=== PATIENT | female | born 1990 | race Caucasian/White ===

== ENCOUNTER → 2018-01-03 09:21 | Outpatient (CLI) | payer OTHER ==
[~2018-01-03 09:21] MED LIST: MOTRIN600 MG PO; PRENATAL COMPLE1 TAB PO; TUMS500 MG PO; TYLENOL PM1 TAB PO; TYLENOL W/CODEI1 TAB PO
[2018-01-07 08:38] VITALS: BMI 46.8
== END | disposition home or self-care (01) ==
LOC: D.LDO 09:21
DX: O48.0 Post-term pregnancy (principal); Z3A.40 40 weeks gestation of pregnancy; O36.8130 Decreased fetal movements, third trimester, not applicable or unspecified

== ENCOUNTER → 2018-01-04 15:49 | Outpatient (CLI) | payer OTHER ==
[2018-01-07 08:38] VITALS: BMI 46.8
== END | disposition home or self-care (01) ==
LOC: D.LDO 15:49
DX: O48.0 Post-term pregnancy (principal); Z3A.40 40 weeks gestation of pregnancy

== ENCOUNTER 2018-01-06 19:49 | Inpatient (IN) | payer OTHER ==
[~2018-01-06] VITALS: Ht 152.4 cm; Wt 108.9 kg
--- NOTE | ~2018-01-06 | DS ---
PATIENT:ANDRA RUSSELL :88 MEDICAL RECORD: [id number] DISCHARGE SUMMARY ADMISSION DATE: 01/06/18 DISCHARGE DATE: 01/09/18 DATE OF ADMISSION: 01/06/2018 DATE OF DISCHARGE: 01/09/2018 ADMISSION DIAGNOSIS: at term. DISCHARGE DIAGNOSIS: Mother delivered at term. PROCEDURE: Induction of labor with vaginal delivery. ATTENDING: Sachin Rubin MD HISTORY OF PRESENT ILLNESS AND INDICATION FOR HOSPITALIZATION: See the H&P in the chart. SUMMARY OF HOSPITALIZATION: The patient was admitted and underwent induction of labor without incident. The patient went on to deliver vaginally with perineal laceration, which was repaired. At the time of discharge, she is reporting adequate pain control with Motrin and Tylenol. The patient has been given standard precautions. She is afebrile and the uterus is below the level of the umbilicus and firm. She describes her lochia is moderate. The patient will be followed up in 6 weeks. TRANSINT:[id number] Voice Confirmation ID: [id number] DOCUMENT ID: [id number] SACHIN RUBIN MD at 0942 CC: [id number] DICTATION DATE: 02/15/18817 ACCOUNTS OFFICER: 02/15/18 0842 DIS IN 01/09/18 [id number] [place] [address]
--- NOTE | ~2018-01-06 | OP ---
PATIENT NAME: ANDRA RUSSELL MEDICAL RECORD: [id number] :89 LOCATION:[id number] ADMISSION DATE:01/06/18 SURGEON: OH RUBIN MD DATE OF OPERATION: 01/08/2018 DELIVERY NOTE PREDELIVERY DIAGNOSIS: at 40+ weeks' gestation. POSTDELIVERY DIAGNOSIS. Mother delivered at term. PROCEDURE: Induction of labor with vaginal delivery. ATTENDING: Oh Rubin MD ANESTHETIC: Continuous lumbar epidural. FINDINGS: Viable female in K[place] presentation. Apgars were 9 and 9. The weight is 9 pounds 2 ounces. The patient had poor progress from the first and the second stage of labor, found to be OP; and after Gilbert maneuver, OA presentation was delivered. The midline episiotomy was performed with 3-0 chromic repair. First-degree vaginal laceration was repaired with 4-0 chromic. The placenta was spontaneous and intact. EBL: 350 cc. DISPOSITION: Mother and infant recovered in the room. TRANSINT:[id number] Voice Confirmation ID: [id number] DOCUMENT ID: [id number] OH RUBIN MD at 0718 CC: [id number] DICTATION DATE: 01/08/182010 MECHANICAL SERVICE SPECIALIST: 01/08/182026 ADM IN [id number] [place] [address]
[2018-01-06] MEDS ORDERED: PRENATAL COMPLE1 TAB PO (19:56)
[2018-01-06] MEDS ORDERED: TYLENOL PM1 TAB PO (19:57)
[2018-01-06] MEDS ORDERED: TUMS500 MG PO (19:58)
[2018-01-06 20:44] VITALS: BP 119/77
[2018-01-06 20:45] LABS: HEMOGLOBIN 9.7 g/dL (12-16); MCH 28.3 pg (26.0-34.0); MCHC 32.3 g/dL (31.0-37.0); MCV 87.5 fL (80.0-100.0); MEAN PLATELET VOLUME 9.9 fL (7.4-10.4); RBC 3.43 10x6/uL (4.00-5.40); RDW 14.1 % (11.5-14.5)
[2018-01-06 20:54] LABS: APPEARANCE CLEAR (CLEAR); BACTERIA FEW /hpf (NONE SEEN); BILIRUBIN NEGATIVE (NEGATIVE); COLOR STRAW (YELLOW); EPITHELIAL CELLS 0-5 /hpf (0-5); GLUCOSE NEGATIVE (NEGATIVE); KETONE NEGATIVE (NEGATIVE); NITRITE NEGATIVE (NEGATIVE); PROTEIN NEGATIVE (NEGATIVE); RED CELLS - URINE RARE /hpf (0-5); UROBILINOGEN NORMAL (NORMAL); WHITE CELLS - URINE 0-5 /hpf (0-5)
[2018-01-07 08:38] VITALS: Ht 152.4 cm; Wt 108.9 kg
[2018-01-08 08:19] LABS: RAPID PLASMA REAGIN Non Reactive (Non Reactive)
[2018-01-09 00:43] VITALS: BP 101/58
[2018-01-09] MEDS ORDERED: MOTRIN600 MG PO (19:36)
[2018-01-09] MEDS ORDERED: TYLENOL W/CODEI1 TAB PO (19:36)
[2018-01-09 20:45] VITALS: BP 120/72
== END 2018-01-09 21:15 | disposition home or self-care (01) | DRG 775 ==
LOC: D.LD 19:49
PROVIDERS: Obstetrics & Gynecology
PROC: 0HQ9XZZ Repair Perineum Skin, External Approach (ICD-10-PCS; principal; 2018-01-07)
PROC: 10E0XZZ Delivery of Products of Conception, External Approach (ICD-10-PCS; 2018-01-07)
PROC: 0W8NXZZ Division of Female Perineum, External Approach (ICD-10-PCS; 2018-01-07)
PROC: 3E033VJ Introduction of Other Hormone into Peripheral Vein, Percutaneous Approach (ICD-10-PCS; 2018-01-07)
DX: O70.0 First degree perineal laceration during delivery (principal); Z3A.40 40 weeks gestation of pregnancy; Z37.0 Single live birth